=== PATIENT | female | born 1985 | race Hispanic/Latino ===

== ENCOUNTER 2018-01-16 16:26 | Inpatient (IN) | payer OTHER ==
[2018-01-16 17:42] VITALS: BMI 27.3
[2018-01-16] MEDS ORDERED: Lactated Ringer's 1,000 ML IV ONE (17:43)
[2018-01-16] MEDS ORDERED: Lactated Ringer's 1,000 ML IV SCH (17:45)
[2018-01-16 18:08] LABS: BASO % 0.2 % (0.0-2.0); EOS % 0.2 % (0.0-4.0); HEMOGLOBIN 10.7 g/dL (11.0-16.0); LYMPH # 1.2 K/uL (1.0-4.3); LYMPH % 10.9 % (20.0-40.0); MEAN CELL VOLUME 83.5 fL (81.0-99.0); MEAN CORPUSCULAR HEMOGLOBIN 27.8 pg (27.0-31.0); MEAN CORPUSCULAR HGB CONC 33.3 g/dL (33.0-37.0); MEAN PLATELET VOLUME 9.3 fL (7.2-11.7); MONO # 0.6 K/uL (0.0-0.8); MONO % 5.7 % (0.0-10.0); RBC 3.85 Mil/uL (3.80-5.20); RED CELL DISTRIBUTION WIDTH 12.1 % (11.5-14.5); WHITE BLOOD COUNT 10.8 K/uL (4.8-10.8)
[2018-01-16 18:11] LABS: SQUAMOUS EPITHIAL 13 /hpf (0-5); URINE BACTERIA FEW (<OCC); URINE BILIRUBIN NEGATIVE (NEGATIVE); URINE BLOOD 1+ (NEGATIVE); URINE CLARITY Hazy (Clear); URINE COLOR Yellow (YELLOW); URINE GLUCOSE (UA) NORMAL (Normal); URINE LEUKOCYTE ESTERASE NEG Leu/uL (Negative); URINE PROTEIN NEGATIVE (NEGATIVE); URINE UROBILINOGEN NORMAL mg/dL (0.2-1.0)
[2018-01-16 18:25] LABS: ALB/GLOB RATIO 1.1 (1.0-2.1); ALBUMIN 3.3 g/dL (3.5-5.0); BLOOD UREA NITROGEN 9 mg/dL (7-17); CALCIUM 8.6 mg/dl (8.6-10.4); GFR NON-AFRICAN AMERICAN > 60
[2018-01-16 18:34] LABS: ALT/SGPT 17 U/L (9-52); AST/SGOT 27 U/L (14-36)
--- NOTE | 2018-01-16 19:35 | OBADHP ---
Datetime: 01/16/2018 17:06 Admit Comment, IP Provider: This is a private patient of Dr. Jonathan Alcala 32 year old female at 38.4 weeks by LMP was referred by her Obgyn, Dr. Alcala, for inducti on of labor. Patient's LMP is 04/21/2017. MAYO is 01/26/2018. Reports normal movements, last move ment being 10 minutes prior to examination. Reports passing mucus plug with some bleeding 3 days ago, however no vaginal bleeding since. Reports irregular contractions for the past 3-4 days. Last contra ction was one hour prior to arrival. Denies rupture of membranes. States she took a tylenol this morn ing for a left frontal sinus headache. She reports bilateral ankle swelling throughout and sharp pelvic pain with movement that began today. Denies blurred vision, floaters/spots, nausea , vomiting, and abdominal pain. care: Dr. Alcala beginning with her 2nd trimester. OB Hx: One previous normal vaginal delivery in 2016, female at 6 lbs 8 oz at [place]. Reports chavez led epidural. Post depression; has been on medication since [employer] Hx: 13x 29-31 x 7 days. No history of fibroid or cysts. Denies STIs. Last pap smear was 8, negative results. 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 Alcala) PSHx: none Medications: Sertraline 50mg daily, Biotin, vitamin Allergies: codeine = vomiting Social Hx: Denies tobacco, alcohol, drugs. Lives with her and 2 year old daughter. Patient works in [employer] and has worked throughout her . Family Hx: Mother is living at 61 years old, no medical problems, Father is living at 62 years wit h no medical problems; (+) bipolar disorder. Assessment and Plan 1. Admit patient to Labor and delivery 2. Induction of labor- cervidil 3. Labs-CBC, CMP, UA 4. IVF-LR 1L bolus, LR @ 125mls/hr Case discussed with Dr. Norman, attending physician. Clemencia Soto, PGY-1 Attending Note: patient seen and evaluated by me. I agree with the above. Cervical examination per formed by me. Case D/W Dr. Alcala: cervidil for cervical ripening. Continue sertraline; psychiatry c onsultation for the morning. Cervidil placed in posterior vaginal vault by me at 1736 hours - Dr. Smith is aware Extremities - PN: Abnormal Abdomen - PN: Normal Lungs - PN: Normal Heart - PN: Normal Neurologic - PN: Normal HEENT - PN: Normal General - PN: Normal Presentation-Admit: Vertex FHR - Baseline A Provider: 135 Contraction Comments Provider: none Comments, ACOG Physical Exam: Non-pitting edema to R ankle. Fundal height is 2 finger breadths below xiphoid. Gestation - Est Wks by US: 38w 4d Vital Signs Provider: Reviewed IP Chief Complaint: Uterine contractions NICHD Variability Prov Fetus A: Moderate 6-25bpm NICHD Accel Fetus A IP Provider: [id number] FHR Category Provider Fetus A: Category I NICHD Decel Fetus A IP Provider: None Dilatation, Provider: 1-2 Effacement, Provider: 30 Station, Provider: -3 EGA AdmitDate IP: 38.4 IP Adm Impression: Term, intrauterine IP Admit Plan: Admit to unit; Initiate labor induction protocol
--- NOTE | 2018-01-16 21:39 | OBADHP ---
Datetime: 01/16/2018 17:06 IP Hx Assessment: The History has been Reviewed and is Current EGA AdmitDate IP: 38.4
[2018-01-16] MEDS ORDERED: Nalbuphine HCL 10 mg/ml Ampule IVP PRN (21:45)
[2018-01-16] MEDS ORDERED: Nalbuphine HCL 10 mg/ml Ampule ONE (21:52)
--- NOTE | 2018-01-17 05:44 | OBPN ---
Datetime: 01/17/2018 05:36 IP Progress Impression: Normal progression of labor IP Procedures: Sterile Vag Exam IP Progress Plan: Continue present management; Anticipate Vaginal Delivery Membranes, Provider: Intact Contraction Comments Provider: irregular FHR - Baseline A Provider: 135 IP Progress Note Comment: Patient awake, glad to have rested Cervical exam: as above; medium consistency, mid position. Cervidil removed. Assessment: 32 y.o. P1, 38w 5d. Category 1 tracing. Clinically stable Plan: 1) conservative management 2) anticipate vaginal delivery- - will advise Dr. Cari MARINELLI Accel Fetus A IP Provider: [id number] FHR Category Provider Fetus A: Category I NICHD Variability Prov Fetus A: Moderate 6-25bpm Dilatation, Provider: 3-3 Effacement, Provider: 40 Station, Provider: -3 ISIS Decel Fetus A IP Provider: None Datetime: 01/16/2018 17:06 Gestation - Est Wks by US: 38w 4d Presentation-Admit: Vertex Vital Signs Provider: Reviewed
[2018-01-17] MEDS ORDERED: Oxytocin 30 UNIT 30 UNITS/500 ML BAG IV ONE (06:37)
[2018-01-17] MEDS ORDERED: Lidocaine 2% MPF (5 ml) Inj ONE (07:54)
[2018-01-17] MEDS ORDERED: Benzocaine/Menthol 20%-0.5% Topical Spray (60 ml) EXT PRN (14:08)
[2018-01-17] MEDS ORDERED: Simethicone 80 mg Chewtab PO PRN (14:09)
--- NOTE | 2018-01-17 14:10 | OBDS ---
DELIVERY PERSONNEL Delivery Doctor: Jonathan Alcala MD Senior Sales Administrator: Madelyn Go RN Anesthesiologist: KAMARI MATERNAL INFORMATION Delivery Anesthesia: Epidural Medications in Delivery: PITOCIN 20 Estimated Blood Loss (ml): 300 Placenta Cultured: No Maternal Complications: None Provider Comments: dr alcala private baby deliverd in [place]. end clean 9/9 no com placente to pathology LABOR SUMMARY EDC: 01/26/2018 00:00 No. Babies in Womb: 1 Attempted: No Labor Anesthesia: Epidural LABOR INFORMATION Reason for Induction: Other Reason for Induction Other: BIPOLAR Complete Dilatation: 01/17/2018 13:40 Cervical Ripening Agents: Cervidil (Annotations: Cervidil out/discontinued by Dr. Norman.) Oxytocin: Induction Group B Beta Strep: Negative Steroids Given: None Reason Steroids Not Administered: Not Applicable MEMBRANES Membranes Rupture Method: Artificial Rupture of Membranes: 01/17/2018 10:00 Length of Rupture (hrs): 3.78 Amniotic Fluid Color: Clear Amniotic Fluid Amount: Moderate Amniotic Fluid Odor: Normal STAGES OF LABOR Stage 2 hrs: 0 Stage 2 min: 7 Stage 3 hrs: 0 Stage 3 min: 1 VAGINAL DELIVERY Episiotomy: None Laceration Extension: N/A Laceration Type: None Initial Vag Sponge Count: 10 Final Vag Sponge Count: 10 Initial Vag Sharps Count: 0 Sponge Count Correct: Yes Sharps Count Correct: Yes BABY A INFORMATION Delivery Date/Time: 01/17/2018 13:47 Method of Delivery: Vaginal Born in Route : No : N/A Forceps: N/A Vacuum Extraction: N/A Shoulder Dystocia : No SHOULDER DYSTOCIA BABY A Infant Delivery Date/Time: 01/17/2018 13:47 PRESENTATION/POSITION BABY A Presentation: Cephalic Cephalic Presentation: Vertex Vertex Position: Right Occipital Anterior Breech Presentation: N/A PLACENTA INFORMATION BABY A Placenta Delivery Time : 01/17/2018 13:48 Placenta Method of Delivery: Spontaneous Placenta Status: Delivered SCORES BABY A Heart Rate 1 min: >100 bpm Resp Effort 1 min: Good Cry Reflex Irritability 1 min: Cough or Sneeze or Pulls Away Muscle Tone 1 min: Active Motion Color 1 min: Body [place], Extremities Blue Resuscitation Effort 1 min: Tactile Stimulation SCORE 1 MIN: 9 Heart Rate 5 min: >100 bpm Resp Effort 5 min: Good Cry Reflex Irritability 5 min: Cough or Sneeze or Pulls Away Muscle Tone 5 min: Active Motion Color 5 min: Body [place], Extremities Blue SCORE 5 MIN: 9 INFORMATION BABY A Gestational Age at Delivery: 38.4 Gestational Status: Term Outcome : Liveborn Infant Condition : Stable Sex: Male IDENTIFICATION/MEDS BABY A ID Band Number: [id number] ID Band Location: Left Leg; Left Arm Sensor Applied: Yes Sensor Number: [id number] Sensor Location : Cord Clamp WEIGHT/LENGTH BABY A Birthweight (gms): 3070 Infant Weight (lb): 6 Infant Weight (oz): 12 Length Inches: 19.75 Length cms: 50.2 CORD INFORMATION BABY A No. Cord Vessels: 3 Nuchal Cord : N/A Cord Blood Taken: Yes Suction: Mouth ASSESSMENT BABY A Complications: None Physical Findings at Delivery: Within Normal Limits Respirations: Appears Normal Blast Furnace Keeper/ALS Called : No Care By: DAMARIS Transferred To: Remains with Mother
--- NOTE | 2018-01-17 14:28 | CP.PCM.PCO ---
Physician Communication Note - Physician Communication Note Physician Communication Note: Please re-order the psych consult for Dr. Sung Leo, who will see her.
--- NOTE | 2018-01-18 06:02 | OBPPN ---
Datetime: 01/18/2018 05:59 PP Pain Prov: Within normal limits PP Nausea Prov: Denies PP Flatus Prov: Yes PP BM Prov: Yes PP Comments Phys Exam Prov: abd below umblicus ext mild edema, no calf te PP Impression Prov: Normal progression PP Plan Prov: Continue present management PP Progress Note Prov: pt was seen at be side, pain under control,no n/v, tolerating deit,voiding,m in lochia., flatus + ppd#1 s/p cont pp care cont pain ma ref phscy Vital Signs Provider PP: Reviewed; Within Normal Limits
[2018-01-18 09:24] LABS: BASO % 0.2 % (0.0-2.0); EOS # 0.1 K/uL (0.0-0.7); EOS % 0.6 % (0.0-4.0); HEMOGLOBIN 10.5 g/dL (11.0-16.0); LYMPH # 1.1 K/uL (1.0-4.3); LYMPH % 9.9 % (20.0-40.0); MEAN CELL VOLUME 84.1 fL (81.0-99.0); MEAN CORPUSCULAR HEMOGLOBIN 27.6 pg (27.0-31.0); MEAN CORPUSCULAR HGB CONC 32.8 g/dL (33.0-37.0); MEAN PLATELET VOLUME 9.5 fL (7.2-11.7); MONO # 0.7 K/uL (0.0-0.8); MONO % 5.8 % (0.0-10.0); NEUT # 9.5 K/uL (1.8-7.0); NEUT % 83.5 % (50.0-75.0); PLATELET COUNT 155 K/uL (130-400); RBC 3.81 Mil/uL (3.80-5.20); RED CELL DISTRIBUTION WIDTH 12.4 % (11.5-14.5); WHITE BLOOD COUNT 11.4 K/uL (4.8-10.8)
[2018-01-18 10:07] VITALS: RESP 18
[2018-01-18 11:46] LABS: EOSINOPHIL 1 % (0-4); LYMPHOCYTE 8 % (20-40); MONOCYTE 5 % (0-10); NEUTROPHIL 86 % (50-75); PLATELET ESTIMATE NORMAL (NORMAL); TOTAL CELLS COUNTED 100
[2018-01-18 11:47] LABS: ANISOCYTOSIS SLIGHT; GIANT PLATELETS PRESENT; HYPOCHROMIC SLIGHT; LARGE PLATELETS PRESENT; POLYCHROMIC SLIGHT
[2018-01-18] MEDS ORDERED: Influenza Vaccine 60 MCG/0.5 ML SYR (3 yr & up) IM ONE ×2 (12:00→13:15)
[2018-01-18] MEDS ORDERED: Tdap Vaccine 0.5 ml Vial (10-64 yrs) IM ONE (14:17)
[2018-01-18 21:39] VITALS: BP 112/64; PULSE 81; TEMP 97.8; O2SAT 98
== END 2018-01-18 17:00 | disposition home or self-care (01) | DRG 807 ==
LOC: C.EROB 16:26 → C.4D 17:18 → UNDOADMIN 17:18 → C.4D 17:44 → C.4M 01-17 14:56
PROVIDERS: ADMIT Obstetrics & Gynecology; ATTEND Obstetrics & Gynecology
PROC: 10E0XZZ Delivery of Products of Conception, External Approach (ICD-10-PCS; principal; 2018-01-17)
DX: O80 Encounter for full-term uncomplicated delivery (principal); Z37.0 Single live birth; Z3A.38 38 weeks gestation of pregnancy